=== PATIENT | female | born 1960 | race Caucasian/White ===

== ENCOUNTER → 2021-08-18 | Outpatient (CLI) | payer OTHER | LOC: M RAD 11:02 | PROVIDERS: ATTEND Physician Assistant | DX: M25.551 Pain in right hip (principal) ==

== ENCOUNTER → 2021-09-06 | Outpatient (CLI) | payer OTHER | LOC: M RAD 13:27 | PROVIDERS: ATTEND Nurse Practitioner Adult Health | DX: Z12.2 Encounter for screening for malignant neoplasm of respiratory organs (principal); R91.8 Other nonspecific abnormal finding of lung field; F17.210 Nicotine dependence, cigarettes, uncomplicated ==

== ENCOUNTER → 2021-09-07 | Outpatient (REF) | payer OTHER ==
[2021-09-07 17:37] LABS: APPEARANCE, URINE CLOUDY (CLEAR); BACTERIA, URINE AUTO 2+ (NEGATIVE); BILIRUBIN, URINE AUTO NEGATIVE (NEGATIVE); BLOOD, URINE BLOOD NEGATIVE (NEGATIVE); COLOR, URINE RED (YELLOW); GLUCOSE, URINE (UA) AUTO NEGATIVE (NEGATIVE); KETONE, URINE AUTO NEGATIVE (NEGATIVE); LEUKOCYTE ESTERASE, URINE AUTO TRACE (NEGATIVE); MUCUS, URINE SMALL (NEGATIVE); NITRITE, URINE AUTO NEGATIVE (NEGATIVE); PROTEIN, URINE AUTO 1+ mg/dL (NEGATIVE); RBC, URINE AUTO 1 /HPF (0-3); SPECIFIC GRAVITY URINE AUTO 1.012 (1.002-1.035); SQUAMOUS EPITHELIAL CELL UR AU 0 /HPF (0-6); UROBILINOGEN, URINE AUTO 0.2 mg/dL (0.0-2.0); WBC, URINE AUTO 20 /HPF (0-3)
== END ==
LOC: M SMT 16:56
PROVIDERS: ATTEND Nurse Practitioner Women's Health
DX: R82.90 Unspecified abnormal findings in urine (principal)

== ENCOUNTER → 2021-12-08 | Outpatient (CLI) | payer MEDICAID, OTHER | LOC: M PLAIMG 10:08 | PROVIDERS: ATTEND Nurse Practitioner Adult Health | DX: R91.8 Other nonspecific abnormal finding of lung field (principal); J44.9 Chronic obstructive pulmonary disease, unspecified ==

== ENCOUNTER 2021-12-18 09:52 | Emergency (ER) | payer OTHER ==
[~2021-12-18] VITALS: Ht 160 cm; Wt 43.2 kg
[2021-12-18] MEDS ORDERED: ALBU2.5V10 NEB (10:00)
[2021-12-18] MEDS ORDERED: PROAAER10 (10:00)
[2021-12-18] MEDS ORDERED: FLUT1BLS4 (10:01)
[2021-12-18] MEDS ORDERED: COMBIVENT RESPIMAT 100-20MCG INHALER 4GM INH ONE (10:15)
[2021-12-18] MEDS ORDERED: methylPREDNISolone 125MG 2ML VIAL IV ONE (10:15)
[2021-12-18 10:42] LABS: BASO # 0.1 10^3/uL (0.0-0.2); EOS # 0.1 10^3/uL (0.0-0.5); EOS % 1.3 % (0.0-3.0); HEMATOCRIT 42.9 % (36.0-47.0); HEMOGLOBIN 14.4 g/dl (12.0-15.5); LYMPH # 2.7 10^3/uL (1.5-5.0); LYMPH % 34.8 % (24.0-44.0); MEAN CORPUSCULAR HEMOGLOBIN 32.4 pg (27.0-33.0); MEAN CORPUSCULAR HGB CONC 33.6 g/dl (32.0-36.5); MEAN CORPUSCULAR VOLUME 96.6 fl (80.0-96.0); MONO # 0.8 10^3/uL (0.0-0.8); MONO % 10.2 % (2.0-8.0); NEUTROPHILS # 4.1 10^3/uL (1.5-8.5); NEUTROPHILS % 52.6 % (36.0-66.0); PLATELET COUNT, AUTOMATED 330 10^3/uL (150-450); RED BLOOD COUNT 4.44 10^6/uL (4.00-5.40); WHITE BLOOD COUNT 7.8 10^3/uL (4.0-10.0)
[2021-12-18 11:20] LABS: CK-MB VALUE MASS < 1.0 NG/ML (<3.6); CPK CREATINE PHOSPHOKINASE 46 U/L (26-192); MB/CK RELATIVE INDEX 2.17 (< OR =4)
[2021-12-18 11:28] LABS: ALBUMIN 3.4 GM/DL (3.2-5.2); ALT/SGPT 16 U/L (12-78); BILIRUBIN,DIRECT < 0.1 MG/DL (0.0-0.2); BILIRUBIN,TOTAL 0.4 MG/DL (0.2-1.0); BLOOD UREA NITROGEN 9 MG/DL (7-18); CALCIUM LEVEL 9.4 MG/DL (8.8-10.2); CARBON DIOXIDE LEVEL 29 MEQ/L (21-32); CHLORIDE LEVEL 108 MEQ/L (98-107); CREATININE FOR GFR 0.58 MG/DL (0.55-1.30); GLOMERULAR FILTRATION RATE > 60.0 (>45); GLUCOSE, FASTING 95 MG/DL (70-100); NT-PRO BNP 22 PG/ML (<125); POTASSIUM SERUM 4.4 MEQ/L (3.5-5.1); SODIUM LEVEL 141 MEQ/L (136-145); TOTAL PROTEIN 6.5 GM/DL (6.4-8.2)
[2021-12-18] MEDS ORDERED: ISOVUE-370 76% 100ML VIAL As Ordered ONE (11:40)
[2021-12-18] MEDS ORDERED: KETOROLAC 30 MG/ML 1ML VIAL IV ONE (12:30)
[2021-12-18 12:39] LABS: CK-MB VALUE MASS < 1.0 NG/ML (<3.6); CPK CREATINE PHOSPHOKINASE 68 U/L (26-192); MB/CK RELATIVE INDEX 1.47 (< OR =4)
[2021-12-18] MEDS ORDERED: NICO21DI37 TOP (13:35)
[2021-12-18] MEDS ORDERED: PRED20TA PO (13:35)
[2021-12-18] MEDS ORDERED: HYDR-3713 PO (13:35)
[2021-12-18 13:45] VITALS: BP 98/74
== END 2021-12-18 13:55 | disposition home or self-care (01) ==
LOC: M ED 09:52
DX: D38.1 Neoplasm of uncertain behavior of trachea, bronchus and lung (principal); R07.9 Chest pain, unspecified; R06.02 Shortness of breath; J44.9 Chronic obstructive pulmonary disease, unspecified; Z79.899 Other long term (current) drug therapy; Z79.51 Long term (current) use of inhaled steroids; F17.200 Nicotine dependence, unspecified, uncomplicated
CPT/HCPCS: 71045; 71275; 80048; 80076; 82550; 82553; 83605; 83880; 84443; 85025; 87040; 87486; 87581; 87633; 87798; 93005; 93041; 94640; 94760; 96374; 96375; 99285; J1885; J2930; Q9967

== ENCOUNTER → 2021-12-22 | Outpatient (CLI) | payer OTHER ==
[~2021-12-22] MED LIST: ALBU2.5V10 NEB; FLUT1BLS4; HYDR-3713 PO; NICO21DI37 TOP; PRED20TA PO; PROAAER10; VITA100093 PO
== END ==
LOC: M RAD 09:26
PROVIDERS: ATTEND Internal Medicine Pulmonary Disease
DX: R51.9 Headache, unspecified (principal)

== ENCOUNTER → 2021-12-27 | Outpatient (CLI) | payer OTHER | LOC: M LABSMTC 09:09 | PROVIDERS: ATTEND Anesthesiology | DX: Z01.818 Encounter for other preprocedural examination (principal); Z11.52 Encounter for screening for COVID-19 ==

== ENCOUNTER → 2021-12-27 | Outpatient (CLI) | payer OTHER ==
[2021-12-27 13:05] LABS: PLATELET COUNT, AUTOMATED 365 10^3/uL (150-450)
[2021-12-27 13:20] LABS: INR 0.92; PROTHROMBIN TIME 12.7 SECONDS (12.7-14.5)
[2021-12-27 13:21] LABS: PARTIAL THROMBOPLASTIN TIME 34.6 SECONDS (25.9-37.0)
== END ==
LOC: M PLALAB 10:28
PROVIDERS: ATTEND Internal Medicine Pulmonary Disease
DX: R91.8 Other nonspecific abnormal finding of lung field (principal)

== ENCOUNTER 2021-12-30 06:01 | Day surgery (SDC) | payer OTHER ==
[~2021-12-30] VITALS: Ht 160 cm; Wt 39.5 kg
[2021-12-30] MEDS ORDERED: SUCCINYLCHOLINE 100 MG/5 ML SYRINGE (J0330) As Ordered ONE (06:59)
[2021-12-30] MEDS ORDERED: propofoL 200 MG/20 ML VIAL As Ordered ONE (06:59)
[2021-12-30] MEDS ORDERED: LIDOCAINE 2% 100MG/5ML SDV (FOR ANES.) As Ordered ONE (06:59)
[2021-12-30] MEDS ORDERED: LIDOCAINE 4% INJ 5ML AMP INH ONE (07:00)
[2021-12-30] MEDS ORDERED: ALBUTEROL SULFATE 2.5 MG/0.5 ML INH NEB SOLN INH ONE (07:00)
[2021-12-30] MEDS ORDERED: LIDOCAINE 4% INJ 5ML AMP As Ordered ONE ×2 (07:03→07:13)
[2021-12-30] MEDS ORDERED: MIDAZOLAM INJ 2MG/2ML VIAL (J2250 PER 1MG) As Ordered ONE (07:04)
[2021-12-30] MEDS ORDERED: fentaNYL 100 MCG/2 ML INJECTION As Ordered ONE (07:04)
[2021-12-30] MEDS ORDERED: THROMBIN SOLN 5,000 UNITS VIAL As Ordered ONE (07:06)
[2021-12-30] MEDS ORDERED: GLYCOPYRROLATE INJ 0.2 MG/ML 2 ML VIAL As Ordered ONE (07:06)
[2021-12-30] MEDS ORDERED: EPINEPHrine 1MG/10ML SYRINGE 1.5IN As Ordered ONE (07:13)
[2021-12-30] MEDS ORDERED: CETACAINE SPRAY 5GM As Ordered ONE (07:13)
[2021-12-30] MEDS ORDERED: LR 1,000 ML IV SCH ×2 (07:30→08:50)
[2021-12-30] MEDS ORDERED: ONDANSETRON 4MG 2ML VIAL As Ordered ONE (08:16)
[2021-12-30] MEDS ORDERED: dexameTHASONE 4 MG/ML 1ML VIAL (J1100 PER 1MG) As Ordered ONE (08:16)
[2021-12-30] MEDS ORDERED: oxyCODONE 5MG TAB PO PRN (08:50)
[2021-12-30] MEDS ORDERED: ONDANSETRON 4MG 2ML VIAL IV PRN (08:50)
[2021-12-30] MEDS ORDERED: fentaNYL 100 MCG/2 ML INJECTION IV PRN (08:50)
[2021-12-30 09:36] VITALS: BP 117/63
== END 2021-12-30 09:40 | disposition home or self-care (01) ==
LOC: M SDC 06:01
PROVIDERS: ATTEND Internal Medicine Pulmonary Disease
DX: C34.91 Malignant neoplasm of unspecified part of right bronchus or lung (principal); J44.9 Chronic obstructive pulmonary disease, unspecified; R59.0 Localized enlarged lymph nodes; G35 Multiple sclerosis; F41.9 Anxiety disorder, unspecified; Z86.16 Personal history of COVID-19; Z87.442 Personal history of urinary calculi; F17.200 Nicotine dependence, unspecified, uncomplicated; Z79.899 Other long term (current) drug therapy; Z79.52 Long term (current) use of systemic steroids
CPT/HCPCS: 31623; 31625; 31629; 88104; 88173; 88305; 88341; 88342; J0171; J0330; J1100; J2250; J2405; J3010

== ENCOUNTER → 2022-01-05 | Outpatient (CLI) | payer OTHER, MEDICAID | LOC: M ONCR 10:31 | PROVIDERS: ATTEND General Practice | DX: C34.01 Malignant neoplasm of right main bronchus (principal); F17.210 Nicotine dependence, cigarettes, uncomplicated; R10.13 Epigastric pain; R63.4 Abnormal weight loss; Z88.6 Allergy status to analgesic agent; Z79.899 Other long term (current) drug therapy ==

== ENCOUNTER → 2022-01-20 | Outpatient (CLI) | payer OTHER, MEDICAID ==
[~2022-01-20] VITALS: Ht 165.1 cm; Wt 83.0 kg
[~2022-01-20] MED LIST changes: +DEXA4TA PO; +DOCU100C16; +DULC10SU2 PR; +LEXA5TAB13 PO; +MIRA3350 PO; +MORP15TA2 PO; +ONDA-84 PO; +PROAAER10 INH; +PROC10TA5 PO; +SENN-80 PO; +Shower Chair; +[UNRECOGNIZED DRUG - OTHER]
[2022-01-20 14:04] VITALS: BP 106/74
== END ==
LOC: M PAL 13:39
PROVIDERS: ATTEND Nurse Practitioner Adult Health
DX: C34.01 Malignant neoplasm of right main bronchus (principal); G35 Multiple sclerosis; J44.9 Chronic obstructive pulmonary disease, unspecified; F41.9 Anxiety disorder, unspecified; G89.3 Neoplasm related pain (acute) (chronic); R06.00 Dyspnea, unspecified; R10.13 Epigastric pain; R53.83 Other fatigue; R11.0 Nausea; R63.0 Anorexia; F17.210 Nicotine dependence, cigarettes, uncomplicated; K59.00 Constipation, unspecified; G47.01 Insomnia due to medical condition; Z51.5 Encounter for palliative care; Z88.6 Allergy status to analgesic agent; Z79.891 Long term (current) use of opiate analgesic; Z79.899 Other long term (current) drug therapy; R63.4 Abnormal weight loss

== ENCOUNTER → 2022-01-26 | Outpatient (RCR) | payer OTHER, MEDICAID | LOC: M ONCR 01-06 13:24 | PROVIDERS: ATTEND General Practice | DX: C34.01 Malignant neoplasm of right main bronchus (principal) ==

== ENCOUNTER → 2022-01-27 | Outpatient (CLI) | payer OTHER, MEDICAID ==
[~2022-01-27] VITALS: Ht 157.5 cm; Wt 38.4 kg
[2022-01-27 10:50] VITALS: BP 130/77
== END ==
LOC: M PAL 09:29
PROVIDERS: ATTEND Nurse Practitioner Adult Health
DX: C34.91 Malignant neoplasm of unspecified part of right bronchus or lung (principal); F17.200 Nicotine dependence, unspecified, uncomplicated; M25.511 Pain in right shoulder; F41.9 Anxiety disorder, unspecified; G35 Multiple sclerosis; J44.9 Chronic obstructive pulmonary disease, unspecified; K59.00 Constipation, unspecified; G47.00 Insomnia, unspecified; R63.0 Anorexia; Z66 Do not resuscitate; Z51.5 Encounter for palliative care; G89.3 Neoplasm related pain (acute) (chronic); R53.83 Other fatigue; Z79.891 Long term (current) use of opiate analgesic; Z79.899 Other long term (current) drug therapy

== ENCOUNTER → 2022-01-30 | Outpatient (CLI) | payer OTHER | LOC: M LABSMTC 09:50 | PROVIDERS: ATTEND Anesthesiology | DX: Z01.812 Encounter for preprocedural laboratory examination (principal); Z20.822 Contact with and (suspected) exposure to COVID-19 ==

== ENCOUNTER → 2022-02-03 | Outpatient (CLI) | payer OTHER, MEDICAID ==
[~2022-02-03] VITALS: Ht 160 cm; Wt 37.5 kg
[~2022-02-03] MED LIST changes: +LEXA1TAB PO; +MORP30TASA PO
[2022-02-03 10:06] VITALS: BP 83/58
== END ==
LOC: M PAL 09:55
PROVIDERS: ATTEND Nurse Practitioner Adult Health
DX: C34.91 Malignant neoplasm of unspecified part of right bronchus or lung (principal); F17.200 Nicotine dependence, unspecified, uncomplicated; M25.511 Pain in right shoulder; G35 Multiple sclerosis; F41.9 Anxiety disorder, unspecified; J44.9 Chronic obstructive pulmonary disease, unspecified; K59.00 Constipation, unspecified; G47.00 Insomnia, unspecified; R63.0 Anorexia; Z66 Do not resuscitate; Z51.5 Encounter for palliative care; G89.3 Neoplasm related pain (acute) (chronic); R53.83 Other fatigue; Z79.891 Long term (current) use of opiate analgesic; Z79.899 Other long term (current) drug therapy

== ENCOUNTER 2022-02-04 07:17 | Day surgery (SDC) | payer OTHER ==
[~2022-02-04] VITALS: Ht 160 cm; Wt 37.1 kg
[~2022-02-04 07:17] MED LIST changes: +HEPARIN SOD (PORCINE) 5000UNITS/ML 1ML VIAL/SYRINGE As Ordered ONE; +LIDOCAINE 1% SDV 30ML VIAL As Ordered ONE; +ceFAZolin SOD 2 GM in IV 1 EA IV ONE
[2022-02-04] MEDS ORDERED: LR 1,000 ML IV SCH (07:35)
[2022-02-04] MEDS ORDERED: LIDOCAINE 2% 100MG/5ML SDV (FOR ANES.) As Ordered ONE (10:02)
[2022-02-04] MEDS ORDERED: MIDAZOLAM INJ 2MG/2ML VIAL (J2250 PER 1MG) As Ordered ONE (10:02)
[2022-02-04] MEDS ORDERED: fentaNYL 100 MCG/2 ML INJECTION As Ordered ONE (10:37)
[2022-02-04] MEDS ORDERED: propofoL 200 MG/20 ML VIAL As Ordered ONE (10:38)
[2022-02-04 11:30] VITALS: BP 94/52
[2022-02-10] MEDS ORDERED: DULC10SU2 PR (16:39)
[2022-02-11] MEDS ORDERED: MORP30TASA PO (17:44)
== END 2022-02-04 11:35 | disposition home or self-care (01) ==
LOC: M SDC 07:17
PROVIDERS: ATTEND Surgery
DX: C34.81 Malignant neoplasm of overlapping sites of right bronchus and lung (principal); Z45.2 Encounter for adjustment and management of vascular access device; J44.9 Chronic obstructive pulmonary disease, unspecified; F41.9 Anxiety disorder, unspecified; F32.A Depression, unspecified; Z79.899 Other long term (current) drug therapy; Z79.51 Long term (current) use of inhaled steroids; Z88.8 Allergy status to other drugs, medicaments and biological substances
CPT/HCPCS: 36561; 76000; C1788; J0690; J1642; J1644; J2250; J3010

== ENCOUNTER → 2022-02-15 | Outpatient (CLI) | payer OTHER ==
[~2022-02-15] VITALS: Ht 160 cm; Wt 84.0 kg
[~2022-02-15] MED LIST changes: +GUAI400T9 PO; -HEPARIN SOD (PORCINE) 5000UNITS/ML 1ML VIAL/SYRINGE As Ordered ONE; -LIDOCAINE 1% SDV 30ML VIAL As Ordered ONE; -ceFAZolin SOD 2 GM in IV 1 EA IV ONE
[2022-02-15 09:23] VITALS: BP 5/3
== END ==
LOC: M PAL 09:04
PROVIDERS: ATTEND Nurse Practitioner Adult Health
DX: C34.91 Malignant neoplasm of unspecified part of right bronchus or lung (principal); F17.200 Nicotine dependence, unspecified, uncomplicated; M25.511 Pain in right shoulder; G35 Multiple sclerosis; G62.9 Polyneuropathy, unspecified; F41.9 Anxiety disorder, unspecified; J44.9 Chronic obstructive pulmonary disease, unspecified; K59.00 Constipation, unspecified; G47.00 Insomnia, unspecified; R63.0 Anorexia; Z66 Do not resuscitate; Z51.5 Encounter for palliative care; G89.3 Neoplasm related pain (acute) (chronic); R53.83 Other fatigue; Z79.891 Long term (current) use of opiate analgesic; Z79.899 Other long term (current) drug therapy

== ENCOUNTER → 2022-02-25 | Outpatient (RCR) | payer OTHER, MEDICAID | LOC: M ONCR 01-27 12:35 | PROVIDERS: ATTEND General Practice | DX: C34.01 Malignant neoplasm of right main bronchus (principal) ==

== ENCOUNTER 2022-03-10 09:38 | Outpatient (RCR) | payer OTHER, MEDICAID ==
[2022-03-10] MEDS ORDERED: MORP30TASA PO (12:49)
[2022-03-10] MEDS ORDERED: MORP15TA2 PO (12:49)
[2022-03-22] MEDS ORDERED: DEXA2TA PO (10:04)
== END 2022-03-28 ==
LOC: M ONCR 09:38
PROVIDERS: ATTEND General Practice
DX: C34.01 Malignant neoplasm of right main bronchus (principal)

== ENCOUNTER → 2022-03-22 | Outpatient (CLI) | payer OTHER ==
[~2022-03-22] VITALS: Ht 152.4 cm; Wt 35.0 kg
[~2022-03-22] MED LIST changes: +DEXA2TA PO
[2022-03-22 09:33] VITALS: BP 80/44
== END ==
LOC: M PAL 08:58
PROVIDERS: ATTEND Nurse Practitioner Adult Health
DX: C34.01 Malignant neoplasm of right main bronchus (principal); G35 Multiple sclerosis; F17.210 Nicotine dependence, cigarettes, uncomplicated; F41.9 Anxiety disorder, unspecified; M25.511 Pain in right shoulder; R63.4 Abnormal weight loss; R13.10 Dysphagia, unspecified; R06.02 Shortness of breath; R05.9 Cough, unspecified; R11.0 Nausea; R14.1 Gas pain; Z92.21 Personal history of antineoplastic chemotherapy; Z79.891 Long term (current) use of opiate analgesic; Z79.899 Other long term (current) drug therapy; Z79.51 Long term (current) use of inhaled steroids; Z51.5 Encounter for palliative care

== ENCOUNTER → 2022-04-19 | Outpatient (CLI) | payer OTHER ==
[~2022-04-19] VITALS: Ht 160 cm; Wt 34.4 kg
[2022-04-19 08:59] VITALS: BP 86/60
== END ==
LOC: M PAL 08:40
PROVIDERS: ATTEND Nurse Practitioner Adult Health
DX: C34.01 Malignant neoplasm of right main bronchus (principal); F17.210 Nicotine dependence, cigarettes, uncomplicated; F41.9 Anxiety disorder, unspecified; G35 Multiple sclerosis; G89.3 Neoplasm related pain (acute) (chronic); M25.511 Pain in right shoulder; R53.83 Other fatigue; R06.02 Shortness of breath; R11.0 Nausea; Z51.5 Encounter for palliative care; Z79.891 Long term (current) use of opiate analgesic; Z79.899 Other long term (current) drug therapy; Z79.51 Long term (current) use of inhaled steroids; Z88.6 Allergy status to analgesic agent; Z92.21 Personal history of antineoplastic chemotherapy

== ENCOUNTER → 2022-04-25 | Outpatient (CLI) | payer OTHER ==
[~2022-04-25] MED LIST changes: +GASTROGRAFIN SOLUTION 30ML As Ordered ONE; +ISOVUE-370 76% 100ML VIAL As Ordered ONE
== END ==
LOC: M RAD 12:07
PROVIDERS: ATTEND Specialist
DX: C34.91 Malignant neoplasm of unspecified part of right bronchus or lung (principal); I25.10 Atherosclerotic heart disease of native coronary artery without angina pectoris

== ENCOUNTER → 2022-05-02 | Outpatient (CLI) | payer OTHER ==
[~2022-05-02] MED LIST changes: -GASTROGRAFIN SOLUTION 30ML As Ordered ONE; -ISOVUE-370 76% 100ML VIAL As Ordered ONE
== END ==
LOC: M ONCR 10:19
PROVIDERS: ATTEND General Practice
DX: C34.01 Malignant neoplasm of right main bronchus (principal); C79.31 Secondary malignant neoplasm of brain; F17.210 Nicotine dependence, cigarettes, uncomplicated; R64 Cachexia; Z79.51 Long term (current) use of inhaled steroids; Z79.891 Long term (current) use of opiate analgesic; Z79.899 Other long term (current) drug therapy; Z88.6 Allergy status to analgesic agent; Z92.21 Personal history of antineoplastic chemotherapy; Z92.3 Personal history of irradiation

== ENCOUNTER → 2022-05-02 | Outpatient (CLI) | payer OTHER ==
[~2022-05-02] MED LIST changes: +ISOVUE-370 76% 100ML VIAL As Ordered ONE
== END ==
LOC: M RAD 08:20
PROVIDERS: ATTEND Specialist
DX: C34.90 Malignant neoplasm of unspecified part of unspecified bronchus or lung (principal); C79.31 Secondary malignant neoplasm of brain